=== PATIENT | male | born 1960 | race Caucasian/White ===

== ENCOUNTER 2016-09-27 06:22 | Day surgery (SDC) | payer OTHER ==
[~2016-09-27] VITALS: Ht 182.9 cm; Wt 104.3 kg
[~2016-09-27 06:22] MED LIST: ENALAPRIL10 MG PO; LIPITOR20 M1 PO; PRILOSEC20 MG PO; SERTRALINE HCL100 MG PO; VITAMIN D400 UNI1 PO
[2016-09-27 08:06] VITALS: BP 109/71
== END 2016-09-27 08:45 | disposition home or self-care (01) | DRG 951 ==
LOC: ENDO 06:22
PROVIDERS: ATTEND Surgery
PROC: 0DJD8ZZ Inspection of Lower Intestinal Tract, Via Natural or Artificial Opening Endoscopic (ICD-10-PCS; principal; 2016-09-27)
DX: Z12.11 Encounter for screening for malignant neoplasm of colon (principal); I10 Essential (primary) hypertension; I25.10 Atherosclerotic heart disease of native coronary artery without angina pectoris; K21.9 Gastro-esophageal reflux disease without esophagitis; E66.9 Obesity, unspecified

== ENCOUNTER → 2022-05-18 | Emergency (ER) | payer BC ==
[~2022-05-18] VITALS: Ht 182.9 cm; Wt 107.0 kg
[~2022-05-18] MED LIST changes: +DOXY-CAPS100 MG PO
[2022-05-18 07:51] VITALS: BP 131/80
[2022-05-18 08:00] VITALS: BP 118/87
[2022-05-18 08:16] VITALS: BP 128/86
[2022-05-18 08:30] VITALS: BP 135/77
== END | disposition home or self-care (01) | DRG 605 ==
LOC: ED 07:45
PROC: 0HQLXZZ Repair Left Lower Leg Skin, External Approach (ICD-10-PCS; principal; 2022-05-18)
DX: S81.812A Laceration without foreign body, left lower leg, initial encounter (principal); W45.8XXA Other foreign body or object entering through skin, initial encounter; I10 Essential (primary) hypertension; Z96.653 Presence of artificial knee joint, bilateral